=== PATIENT | male | born 1990 | race American Indian/Alaskan Native ===

== ENCOUNTER → 2020-11-13 13:42 | Outpatient (CLI) | payer OTHER, SELFPAY ==
--- NOTE | 2020-11-13 | DI.RAD.S_ITS ---
PROCEDURE: XR CHEST 2V INDICATIONS: DIVE PHYSICAL TECHNIQUE: 2 views of the chest were acquired. COMPARISON: None. FINDINGS: Surgical changes and devices: None. Lungs and pleura: Lungs are clear. No pleural effusions or pneumothorax. Mediastinum: Mediastinal contours are normal. Heart size is normal. Bones and chest wall: No suspicious bony abnormalities. Soft tissues appear unremarkable. IMPRESSION: No acute cardiopulmonary disease. Dictated by: Chandu Ernandez [facility] Interpreted: Caryn Vera MD on 11/13/2020 at 14:01 Transcribed by: QUYEN on 11/13/2020 at 14:02 Approved by: Caryn Vera MD, PhD on 11/13/2020 at 15:10
== END ==
PROVIDERS: Family Provider Physician Assistant; PCP Family Medicine; Referring Provider Family Medicine; Visit Provider Family Medicine
DX: Z00.00 Encounter for general adult medical examination without abnormal findings (principal)
CPT/HCPCS: 71046

== ENCOUNTER → 2020-12-06 13:03 | Outpatient (CLI) | payer OTHER, SELFPAY ==
[2020-12-06 14:24] LABS: COVID19 -Nasal RAPID Negative (Negative)
== END ==
LOC: LAB 13:05 → RESP 13:43 → LAB 16:27
PROVIDERS: PCP Family Medicine; Referring Provider Internal Medicine; Visit Provider Internal Medicine
DX: Z20.822 Contact with and (suspected) exposure to COVID-19 (principal)
CPT/HCPCS: 87635; C9803

== ENCOUNTER → 2020-12-07 08:50 | Outpatient (CLI) | payer OTHER, SELFPAY ==
--- NOTE | 2020-12-14 09:24 | PM.PFT.1 ---
Pulmonary Function Test Referral & Results Date Patient Seen: 12/07/20 Requesting provider: Anya Bland Indication: Mild intermittent asthma Results: The spirometry demonstrates an FVC of 6.35 L which is 96% of predicted. The FEV1 was measured at 4.74 L which is 89% of predicted. The FEV1/FVC ratio was 75 which is 90% of predicted. Following the administration of bronchodilator there was no appreciable change. Lung volumes show an SVC of 6.39 L which is 103% of predicted. The diffusing capacity was measured at 31.87 which is 78% of predicted. No hemoglobin value was provided, so no correction for potential anemia could be made, if appropriate. The maximum voluntary ventilation was reduced Interpretation: This study demonstrates normal spirometry There is a minimal reduction in diffusing capacity suggesting the possibility disease at the capillary alveolar level There is also reduction in maximum voluntary ventilation which in the absence of abnormalities of spirometry suggest the presence of neuromuscular disease Clinical correlation suggested
== END ==
PROVIDERS: PCP Family Medicine; Referring Provider Family Medicine; Visit Provider Family Medicine
DX: J45.20 Mild intermittent asthma, uncomplicated (principal)
CPT/HCPCS: 94060; 94726; 94729

== ENCOUNTER 2022-06-23 15:50 | Emergency (ER) | payer OTHER, SELFPAY ==
--- NOTE | 2022-06-23 15:59 | DI.RAD.S_ITS ---
PROCEDURE: XR ANKLE RT MIN 3V INDICATIONS: injury TECHNIQUE: 3 views of the ankle were acquired. COMPARISON: [facility], , ANKLE 3 VIEWS RIGHT, 08/30/2013, 11:21. FINDINGS: Bones: No fractures or dislocations. Ankle mortise is normally aligned. No suspicious bony lesions. Soft tissues: No tibiotalar joint effusion. Achilles tendon appears normal. IMPRESSION: No acute osseous findings. Dictated by: Tong Dueñas M.D. on 06/23/2022 at 15:18 Approved by: Tong Dueñas M.D. on 06/23/2022 at 15:22
[2022-06-23 16:00] VITALS: BP 146/64; PULSE 75; RESP 18; TEMP 36.9; O2SAT 99; BMI 21.9
--- NOTE | 2022-06-23 18:16 | ED_ITS ---
HPI - Extremity Injury (Lower) General Chief Complaint: Extremity Injury, Lower Stated Complaint: R ankle inj Time Seen by Provider: 06/23/22 17:57 Source: patient Mode of arrival: Family Vehicle History of Present Illness HPI Narrative: 31-year-old male nonsmoker with history of asthma presents with a work-related injury suffered just prior to arrival. [place] had [place] and inverted his right ankle feeling as sharp and stabbing pain over his lateral ankle. He has increasing pain with ambulation. He denies any numbness, tingling or weakness. He denies any sensation of instability due to this injury. He denies any knee or hip pain. He comes wearing his own crutches and has a lace-up brace. Denies any chest pain or shortness of breath. He has no nausea, vomiting or diarrhea Related Data Home Medications Medication Instructions Recorded Confirmed ALBUTEROL SULFATE (Ventolin / 2 puff INH PRN ##0 11/25/08 Proventil) Previous Rx's Medication Instructions Recorded ibuprofen 800 mg tablet (IBU) 800 mg PO Q8H PRN pain #20 tabs 06/23/22 Allergies Allergy/AdvReac Type Severity Reaction Status Date / Time Penicillins Allergy Rash Verified 06/23/22 16:05 Review of Systems Review of Systems Narrative: GENERAL: Denies chills, fatigue, malaise, fever, sweats. HEENT: Denies sinus pain, ear pain, sore throat, difficulty swallowing, dizziness. RESPIRATORY: Denies dyspnea, cough, wheezing, hemoptysis, sputum. CARDIOVASCULAR: Denies chest pain, palpitations, orthopnea, edema, GASTROINTESTINAL: Denies nausea, vomiting, abdominal pain, diarrhea, constipation, melena. : Denies dysuria, frequency, incontinence, hematuria, urinary retention. MUSCULOSKELETAL: See HPI SKIN: Denies rash, skin lesions, or other NEUROLOGIC: Denies weakness, headache, numbness, change in speech, confusion, seizures, incoordination. PSYCHIATRIC: No concerning psychosocial issues. 12 point review of systems is negative except for those stated above Patient History Social History Smoking Status: Never smoker Smoking Status: Never smoker alcohol intake frequency: holidays/special occasions only Substance Use Type: does not use Exam Narrative Exam Narrative: GEN: AOx3 and in mild distress EYES: Pupils are equal, round, and reactive to light and accommodation. Extraoccular muscles are intact bilaterally. There is no subconjunctival hemorrhage or exudate. CHEST: Lungs are clear to auscultation bilaterally and free of wheezes, rales, or rhonchi. Heart rate is regular rhythm, there are no murmurs, clicks, rubs, or gallops. There is no chest wall tenderness. ABD: Abdomen is soft and nontender. There is no guarding or rebound. Bowel sounds are normal in all 4 quadrants. There is no mass or organomegaly. EXT: Full but painful range of motion of right ankle with swelling and primary point of tenderness just inferior to lateral malleolus. No pain over talus, medial malleolus. Distal foot with intact sensation and cap refill. No pain with squeeze test. No pain at knee or proximal fibula. SKIN: Warm, pink, and dry. No erythema or rash Initial Vital Signs Initial Vital Signs: Vital Signs Temperature 98.4 F 06/23/22 16:00 Pulse Rate 75 06/23/22 16:00 Respiratory Rate 18 06/23/22 16:00 Blood Pressure 146/64 H 06/23/22 16:00 Pulse Oximetry 99 06/23/22 16:00 Oxygen Delivery Method Room Air 06/23/22 16:00 Course Orders Ordered: ED Orders 06/23/22 15:59 XR ankle RT min 3V Stat Vital Signs Vital signs: Vital Signs - 8 hr 06/23/22 16:00 Temperature 98.4 F Pulse Rate 75 Respiratory Rate 18 Blood Pressure 146/64 H Pulse Oximetry 99 Oxygen Delivery Method Room Air MDM - Extremity Injury (Lower) MDM Narrative Medical decision making narrative: [31] year old patient presents with right ankle pain Multiple etiologies for patient's symptoms considered including, but not limited to: [Sprain, strain versus other] Prior Charts reviewed in our EMR Primary Historian: patient Imaging reviewed: No fracture or dislocation Patient with reassuring history and physical exam. This is closed, isolated and neurovascularly intact, pain swelling in distribution of anterior talofibular ligament. There is no ligamentous laxity, no pain on squeeze test to suggest high ankle sprain. No pain at proximal fibula to suggest syndesmotic or Maissoneuve injury. Patient encouraged to use his own splint, Tylenol, Motrin, crutches as needed and he already plans to follow-up at this when image clinic. Findings and discharge diagnosis discussed with patient/family followed by verbalization of understanding Return precautions discussed with patient/family whom verbalize understanding of diagnosis and plan Discharge Plan Departure Patient Disposition: Home Clinical Impression: Ankle sprain and strain Instructions: DI for Ankle Sprain Activity Restrictions/Additional Instructions: *You have been diagnosed with [right ankle sprain. As we discussed your history and physical exam are reassuring and the x-rays demonstrate no obvious fracture or dislocation] *What to do: *Please continue to take your regular medications as directed. [x ] New medication prescriptions sent to your pharmacy: [ [facility]] [ ] New medication written as a paper prescription [x] Tylenol and occasional Motrin for pain *Return to Emergency Department if you should have any new, worsening or concerning symptoms, such as [worsening pain, significant swelling, cold extremities, numbness, tingling, weakness or other bothersome symptoms Prescriptions: New ibuprofen [IBU] 800 mg tablet 800 mg PO Q8H PRN (Reason: pain) Qty: 20 0RF No Action ALBUTEROL SULFATE (Ventolin / Proventil) 2 puff INH PRN Qty: 0 Referrals: Anya Bland MD [Primary Care Provider] - Stand Alone Forms: Patient Portal/API
--- NOTE | 2022-06-23 18:46 | PC.NURSE ---
Pt arrives with crutches that were unable to be appropriately sized for his height. Given new pair of crutches. No teaching needed as pt has used crutches multiple times in the past. Ambulated out of ED with steady gait on crutches with friend.
== END 2022-06-23 18:49 | disposition home or self-care (01) ==
PROVIDERS: Emergency Provider Emergency Medicine; PCP Family Medicine
DX: S93.401A Sprain of unspecified ligament of right ankle, initial encounter (principal); X50.1XXA Overexertion from prolonged static or awkward postures, initial encounter; Y93.01 Activity, walking, marching and hiking; Y92.832 Beach as the place of occurrence of the external cause; Y99.0 Civilian activity done for income or pay
CPT/HCPCS: 73610; 99283; 99284

== ENCOUNTER → 2022-09-16 14:42 | Outpatient (CLI) | payer OTHER, SELFPAY ==
--- NOTE | 2022-10-09 08:54 | PM.PFT.1 ---
Pulmonary Function Test Referral & Results Date Patient Seen: 09/16/22 Results: The spirometry demonstrates an FVC of 6.25 L which is 95% of predicted. The FEV1 was measured at 4.42 L which is 84% of predicted. The FEV1/FVC ratio was 71 which is 86% of predicted. Following the administration of bronchodilator there was 13% improvement in FEV1 and a 42% improvement in FEF 25-75%. Lung volumes show an SVC of 5.96 L which is 96% of predicted. The diffusing capacity was measured at 36.16 which is 89% of predicted. The maximum voluntary ventilation was normal Interpretation: This study may demonstrate very minimal obstructive lung disease based on minimal reduction FEV1 although FEV1/FVC ratio is preserved. There is evidence of some benefit following bronchodilator particularly small airway flow. However shape a flow volume loop really does not support the presence of any significant obstructive lung disease Compared to PFTs performed in November 2020, current study is essentially unchanged, although previous diffusing capacity was minimally decreased current numbers are normal Clinical correlation suggested
== END ==
PROVIDERS: PCP Family Medicine; Referring Provider Family Medicine; Visit Provider Family Medicine
DX: J45.909 Unspecified asthma, uncomplicated (principal)
CPT/HCPCS: 94060; 94726; 94729